=== PATIENT | female | born 1980 | race African-American/Black ===

== ENCOUNTER 2024-05-24 04:46 | Emergency (ER) | payer OTHER ==
[2024-05-24 04:51] VITALS: BP 141/92; PULSE 77; RESP 18; TEMP 98.2; BMI 30.5
[2024-05-24] MEDS: LORazepam 0.5 MG TABLET PO ONE (05:41)
[2024-05-24] MEDS ORDERED: LORazepam 0.5 MG TABLET ONE (05:43)
== END 2024-05-24 06:19 | disposition home or self-care (01) ==
LOC: JER 04:46
DX: F41.9 Anxiety disorder, unspecified (principal); R00.2 Palpitations; R42 Dizziness and giddiness; R06.02 Shortness of breath; R20.0 Anesthesia of skin; R20.2 Paresthesia of skin
CPT/HCPCS: 99283-25